=== PATIENT | male | born 2000 | race Caucasian/White ===

== ENCOUNTER 2020-11-15 17:16 | Emergency (ER) | payer OTHER ==
[~2020-11-15] VITALS: Ht 167.6 cm; Wt 79.8 kg
[2020-11-15 17:27] VITALS: BP 163/78
[2020-11-15] MEDS ORDERED: CLOTRIMAZOLE 1% TOPICAL CREAM 30GM TOP STA (19:17)
[2020-11-15] MEDS ORDERED: valACYclovir HCL 500 MG TAB PO ONE (19:20)
[2020-11-15] MEDS ORDERED: ANTI1CRE6 TOP (19:50)
[2020-11-15] MEDS ORDERED: VALA1TAB5 PO (19:50)
[2020-11-15 21:42] LABS: CHLAMYDIA DNA AMPLIFICATION NEGATIVE (NEGATIVE); GC DNA AMPLIFICATION NEGATIVE (NEGATIVE)
[2020-11-19 07:07] LABS: HSV-1 DNA Negative (Negative); HSV-2 DNA Negative (Negative)
== END 2020-11-15 20:25 | disposition home or self-care (01) ==
LOC: M ED 17:16
DX: R21 Rash and other nonspecific skin eruption (principal)

== ENCOUNTER 2021-04-16 20:57 | Emergency (ER) | payer OTHER ==
[~2021-04-16] VITALS: Ht 167.6 cm; Wt 79.9 kg
[~2021-04-16 20:57] MED LIST: ANTI1CRE6 TOP; VALA1TAB5 PO
[2021-04-16] MEDS ORDERED: NS 1,000 ML IV ONE (23:35)
[2021-04-17] MEDS ORDERED: ISOVUE-370 76% 100ML VIAL As Ordered ONE (00:08)
[2021-04-17 00:13] LABS: BASO # 0.1 10^3/uL (0.0-0.2); BASO % 0.6 % (0.0-1.0); EOS # 0.4 10^3/uL (0.0-0.5); EOS % 4.6 % (0.0-3.0); HEMOGLOBIN 15.8 g/dl (13.5-17.5); LYMPH # 2.4 10^3/uL (1.5-5.0); LYMPH % 29.2 % (24.0-44.0); MEAN CORPUSCULAR HEMOGLOBIN 31.3 pg (27.0-33.0); MEAN CORPUSCULAR HGB CONC 35.1 g/dl (32.0-36.5); MEAN CORPUSCULAR VOLUME 89.3 fl (80.0-96.0); MONO # 0.7 10^3/uL (0.0-0.8); MONO % 8.1 % (2.0-8.0); NEUTROPHILS # 4.6 10^3/uL (1.5-8.5); NEUTROPHILS % 56.6 % (36.0-66.0); PLATELET COUNT, AUTOMATED 285 10^3/uL (150-450); RED BLOOD COUNT 5.04 10^6/uL (4.30-6.10)
[2021-04-17 00:28] LABS: ALT/SGPT 48 U/L (12-78); BILIRUBIN,DIRECT 0.1 MG/DL (0.0-0.2); BLOOD UREA NITROGEN 19 MG/DL (7-18); CALCIUM LEVEL 8.6 MG/DL (8.5-10.1); CARBON DIOXIDE LEVEL 31 MEQ/L (21-32); CHLORIDE LEVEL 106 MEQ/L (98-107); CREATININE FOR GFR 1.13 MG/DL (0.70-1.30); GLOMERULAR FILTRATION RATE > 60.0 (>60); GLUCOSE, FASTING 100 MG/DL (70-100); LIPASE 109 U/L (73-393); POTASSIUM SERUM 4.3 MEQ/L (3.5-5.1); SODIUM LEVEL 139 MEQ/L (136-145); TOTAL PROTEIN 7.5 GM/DL (6.4-8.2)
--- NOTE | 2021-04-17 01:59 | REPVR ---
PROCEDURE INFORMATION: Exam: CT Abdomen And Pelvis With Contrast Exam date and time: 04/16/2021 11:32 PM Age: 20 years old Clinical indication: Abdominal pain; Localized; Right; Additional info: Epigastric/r sided abd pain TECHNIQUE: Imaging protocol: Computed tomography of the abdomen and pelvis with contrast. Radiation optimization: All CT scans at this facility use at least one of these dose optimization techniques: automated exposure control; mA and/or kV adjustment per patient size (includes targeted exams where dose is matched to clinical indication); or iterative reconstruction. Contrast material: ISO; Contrast volume: 100 ml; Contrast route: INTRAVENOUS (IV); COMPARISON: No relevant prior studies available. FINDINGS: Liver: Normal. No mass. Gallbladder and bile ducts: Normal. No calcified stones. No ductal dilation. Pancreas: Normal. No ductal dilation. Spleen: Normal. No splenomegaly. Adrenal glands: Normal. No mass. Kidneys and ureters: Normal. No hydronephrosis. Stomach and bowel: Mild colonic wall mucosal enhancement, question mild infectious or inflammatory colitis. Appendix: Normal appendix. Intraperitoneal space: Trace free fluid in the pelvis. Vasculature: Unremarkable. No abdominal aortic aneurysm. Lymph nodes: Unremarkable. No enlarged lymph nodes. Urinary bladder: Unremarkable as visualized. Reproductive: Unremarkable as visualized. Bones/joints: Mild lumbar spondylosis with small disc bulge/protrusions at L3-S1. Soft tissues: Unremarkable. IMPRESSION: 1. Mild colonic wall mucosal enhancement, question mild infectious or inflammatory colitis. 2. Trace free fluid in the pelvis. Electronically signed by: Lavon Toussaint On 04/17/2021 01:58:18 AM
[2021-04-17] MEDS ORDERED: metroNIDAZOLE (FLAGYL) 500MG TABLET PO ONE (02:25)
[2021-04-17] MEDS ORDERED: CIPROFLOXACIN 500MG TABLET PO ONE (02:25)
[2021-04-17] MEDS ORDERED: CIPR-249 PO (02:25)
[2021-04-17] MEDS ORDERED: FLAG500T PO (02:25)
[2021-04-17 02:45] VITALS: BP 109/56
== END 2021-04-17 03:13 | disposition home or self-care (01) ==
LOC: M ED 23:55
DX: K52.9 Noninfective gastroenteritis and colitis, unspecified (principal); F17.210 Nicotine dependence, cigarettes, uncomplicated
CPT/HCPCS: 74177; 80048; 80076; 81001; 83690; 85025; 93041; 96360; 99285; Q9967

== ENCOUNTER 2021-06-04 21:41 | Emergency (ER) | payer OTHER ==
[~2021-06-04] VITALS: Ht 167.6 cm; Wt 77.4 kg
[~2021-06-04 21:41] MED LIST changes: +CIPR-249 PO; +FLAG500T PO
[2021-06-04 22:41] LABS: RSV AMPLIFICATION NEGATIVE (NEGATIVE)
[2021-06-05] MEDS ORDERED: ONDANSETRON 4 MG ORAL DISINTEGRATING TAB PO ONE (07:05)
[2021-06-05] MEDS ORDERED: DICYCLOMINE 10 MG CAP PO ONE (07:05)
[2021-06-05] MEDS ORDERED: ONDA4TAB6 PO (07:08)
[2021-06-05] MEDS ORDERED: DICY10CA13 PO (07:08)
[2021-06-05 08:37] VITALS: BP 140/62
== END 2021-06-05 08:38 | disposition home or self-care (01) ==
LOC: M ED 21:41
DX: R11.2 Nausea with vomiting, unspecified (principal); R19.7 Diarrhea, unspecified
CPT/HCPCS: 87631; 99283; Q0162